=== PATIENT | female | born 1955 | race Caucasian/White ===

== ENCOUNTER 2019-02-24 10:52 | Emergency (ER) | payer MEDICAID, MEDICARE ==
[~2019-02-24] VITALS: Ht 165.1 cm; Wt 77.3 kg
[~2019-02-24 10:52] MED LIST: AZIT250T83 PO; CLON-527 PO; CYCL-1 PO; DIPH25CA83 PO; PRED10TA PO; TOP100T PO; TOP25T PO; [UNRECOGNIZED DRUG - CODE] PO
[2019-02-24 11:00] VITALS: BP 106/79
[2019-02-24] MEDS ORDERED: IBUP-1985 PO (12:28)
[2019-02-24] MEDS: ketorolac tromethamine 15mg/ml inj. IM ONE (12:31)
== END 2019-02-24 12:34 | disposition home or self-care (01) ==
LOC: ER 10:52
DX: R07.81 Pleurodynia (principal); R10.9 Unspecified abdominal pain; N28.1 Cyst of kidney, acquired; J44.9 Chronic obstructive pulmonary disease, unspecified; G89.29 Other chronic pain; F17.200 Nicotine dependence, unspecified, uncomplicated; F12.90 Cannabis use, unspecified, uncomplicated; Z88.5 Allergy status to narcotic agent; Z88.6 Allergy status to analgesic agent; Z79.2 Long term (current) use of antibiotics; Z79.899 Other long term (current) drug therapy
CPT/HCPCS: 71101; 96372; 99283; J1885

== ENCOUNTER 2022-01-07 10:30 | Day surgery (SDC) | payer OTHER ==
[2022-01-02 16:09] LABS: BASOPHILS % (AUTO) 0.5 % (0-1); LYMPHOCYTES # (AUTO) 4.3 X10'3 (1.1-4.8); MEAN PLATELET VOLUME 9.2 FL (7.4-10.4); PRE OP HEMATOCRIT 41.8 % (35.0-45.0)
[2022-01-02 16:11] LABS: EOSINOPHILS # (AUTO) 0.2 X10'3 (0-0.9); LYMPHOCYTES % (AUTO) 54.7 % (21-51); MEAN CORPUSCULAR HEMOGLOBIN 31.5 PG (27.0-31.0); MEAN CORPUSCULAR HGB CONC 33.5 g/dL (33.0-36.5); MEAN CORPUSCULAR VOLUME 94.2 FL (78-98); MONOCYTES # (AUTO) 0.6 X10'3 (0-0.9); MONOCYTES % (AUTO) 7.6 % (2-12); NEUTROPHILS # (AUTO) 2.8 X10'3 (1.8-7.7); NEUTROPHILS % (AUTO) 35.2 % (42-75); RED BLOOD COUNT 4.44 X10'6 (4.20-5.60); RED CELL DISTRIBUTION WIDTH 13.5 % (11.5-14.5)
[2022-01-02 16:39] LABS: ALBUMIN 3.8 G/DL (3.4-5.0); ALKALINE PHOSPHATASE 87 IU/L (46-116); BLOOD UREA NITROGEN 16 MG/DL (7-18); BUN/CREATININE RATIO 22.9 (6.6-38.0); CALCIUM 9.3 MG/DL (8.5-10.1); CHLORIDE 107 MMOL/L (99-107); PRE OP ALT 21 U/L (30-65); PRE OP ANION GAP 11 (8-16); PRE OP AST 22 U/L (10-37); PRE OP BILIRUB, TOTAL 0.3 MG/DL (0.0-1.0); PRE OP GLUCOSE 98 MG/DL (70-104); PRE OP POTASSIUM 4.3 MMOL/L (3.4-5.1); PRE OP SODIUM 140 MMOL/L (135-145); TOTAL CARBON DIOXIDE 21.7 MMOL/L (24-32); TOTAL PROTEIN 7.7 G/DL (6.4-8.2); eGFR 84 ML/MIN
[2022-01-02 16:41] LABS: PRE OP PLATELET COUNT 250 X10'3 (140-440)
[~2022-01-07] VITALS: Ht 165.1 cm; Wt 72.1 kg
[2022-01-07] VITALS (15 sets, daily range): BP systolic 98–149; BP diastolic 55–87
[~2022-01-07 10:30] MED LIST changes: +ALBU8.5H17 INH; -AZIT250T83 PO; -CLON-527 PO; -CYCL-1 PO; -DIPH25CA83 PO; +HYDR50CA PO; +INDOCYANINE GREEN 25 MG/10 ML VIAL IV ONE; -PRED10TA PO; -TOP100T PO; -TOP25T PO; -[UNRECOGNIZED DRUG - CODE] PO; +albuterol 2.5 MG/3 ML nebule NEB ONE; +cefazolin/dext.iso 2gm/50ml IV ONE; +famotidine 20mg tablet PO ONE; +ringers solution, lacted 1,000 ML IV SCH
[2022-01-07] MEDS ORDERED: BUPIVAcaine 0.5% inj/PF 30 ML ONE (10:48)
[2022-01-07] MEDS ORDERED: LIDOcaine 2% (20mg/ml) 5ml vial ONE (11:04)
[2022-01-07] MEDS ORDERED: LIDOcaine 1% (10mg/ml) 2ml vial ONE (11:18)
[2022-01-07] MEDS ORDERED: sevoflurane 250ml liquid IH ONE (11:59)
[2022-01-07] MEDS ORDERED: FENTANYL CITRATE/PF 50 MCG/1 ML VIAL ONE (12:05)
[2022-01-07] MEDS ORDERED: propofol inj 20 ML IV ONE (12:05)
[2022-01-07] MEDS ORDERED: midazolam 1 mg/ML 2ml injection ONE ×2 (12:05→12:07)
[2022-01-07] MEDS ORDERED: rocuronium 10mg/ml inj IV ONE (12:05)
[2022-01-07] MEDS ORDERED: BUPIVAcaine 0.5% inj/PF 30 ml vial IJ ONE (12:30)
[2022-01-07] MEDS ORDERED: ondansetron/PF 4mg/2ml inj ONE (12:59)
[2022-01-07] MEDS ORDERED: dexamethasone sod phosphate 4mg/ml inj. ONE (12:59)
[2022-01-07] MEDS ORDERED: meperidine/PF 25mg/ml syringe IV PRN ×2 (13:00)
[2022-01-07] MEDS ORDERED: ringers solution, lacted 1,000 ML IV SCH (13:00)
[2022-01-07] MEDS ORDERED: morphine 2 MG/ML inj. syringe IV PRN (13:00)
[2022-01-07] MEDS ORDERED: morphine 4 MG/ML inj SYRINge IV PRN (13:00)
[2022-01-07] MEDS ORDERED: ondansetron/PF 4mg/2ml inj IV PRN (13:00)
[2022-01-07] MEDS ORDERED: proCHLORperazine 10 MG/2 ml inj IV PRN (13:00)
[2022-01-07] MEDS ORDERED: glycopyrrolate 0.2mg/ml inj ONE (13:02)
[2022-01-07] MEDS ORDERED: neostigmine methylsulfate 1 MG/ML 10ml vial ONE (13:02)
--- NOTE | 2022-01-07 13:16 | NUR ---
[facility] accompanied by Anesthesiologist DR BHAGAT and report given by Anesthesiolgist. PT PRESENTS WITH PIV 18G LEFT UPPER ARM, ABD DRESSING CDI, VSS. Addendum: 01/07/22 at 1330 by Amina Navarro RN, RN Amended: Links added.
[2022-01-07] MEDS ORDERED: oxyCODONE/APAP 5-325mg tablet PO PRN (13:30)
[2022-01-07] MEDS: meperidine/PF 25mg/ml syringe IV PRN ×3 (13:31→14:23)
[2022-01-07] MEDS ORDERED: acetaminophen 325mg tablet PO PRN (13:45)
--- NOTE | 2022-01-07 15:26 | NUR ---
DISCHARGE CRITERIA MET, DISCHARGE INSTRUCTIONS GIVEN TO PT, PT VERBALIZED UNDERSTANDING WITH NO FURTHER QUESTIONS AT THIS TIME. PT TAKEN DOWN IN WHEELCHAIR TO DAUGHTERS VEHICLE. DISCHARGED HOME IN GOOD CONDITION. Addendum: 01/07/22 at 1601 by Amina Navarro RN, RN Amended: Links added.
== END 2022-01-07 15:26 | disposition home or self-care (01) ==
LOC: PAS 10:30
PROVIDERS: ATTEND Surgery
DX: K80.10 Calculus of gallbladder with chronic cholecystitis without obstruction (principal); J44.9 Chronic obstructive pulmonary disease, unspecified; F31.9 Bipolar disorder, unspecified; G40.409 Other generalized epilepsy and epileptic syndromes, not intractable, without status epilepticus; F17.210 Nicotine dependence, cigarettes, uncomplicated; Z79.899 Other long term (current) drug therapy; Z20.822 Contact with and (suspected) exposure to COVID-19; Z98.890 Other specified postprocedural states; Z91.030 Bee allergy status; Z88.5 Allergy status to narcotic agent; Z80.3 Family history of malignant neoplasm of breast; Z84.1 Family history of disorders of kidney and ureter; Z82.61 Family history of arthritis; Z83.2 Family history of diseases of the blood and blood-forming organs and certain disorders involving the immune mechanism
CPT/HCPCS: 36415; 47563; 80053; 82948; 85025; 88304; 93005; J0690; J1100; J2175; J2250; J2405; J2704; J2710; J3010; J3490; J7030; J7120; S0020; U0003; U0005; Z7506; Z7508; Z7512; A4215; A4618; A7000